=== PATIENT | female | born 1985 | race African-American/Black ===

== ENCOUNTER 2021-06-03 17:56 | Emergency (ER) | payer MEDICAID ==
[~2021-06-03] VITALS: Ht 170.2 cm; Wt 134.0 kg
[2021-06-03 20:48] VITALS: BP 187/120
[2021-06-03] MEDS ORDERED: CARB15DR63 EACH EAR (20:59)
[2021-06-03] MEDS ORDERED: IBUP-2028 MT (21:00)
[2021-06-03] MEDS ORDERED: AMOX-424 MT (21:00)
== END 2021-06-03 21:15 | disposition home or self-care (01) ==
LOC: ER 17:56
DX: H66.92 Otitis media, unspecified, left ear (principal); I10 Essential (primary) hypertension
CPT/HCPCS: 99283